=== PATIENT | female | born 1980 | race African-American/Black ===

== ENCOUNTER 2017-03-27 21:27 | Emergency (ER) | payer BC ==
[2017-03-27 22:01] LABS: Bacteria/HPF None Seen HPF (None Seen); Hyaline Casts/LPF 0-3 HYALINE CAST LPF (0-3 Hyaline); Squamous Epithelial None Seen HPF (0-3); WBC/HPF 0-3 HPF (0-3)
[2017-03-27 22:04] LABS: Bilirubin Negative (Negative); Blood, Urine Trace (Negative); Glucose, Urine (Dipstick) Negative (Negative); Ketone, Urine Negative (Negative); Nitrite Negative (Negative); Protein, Urine (Dipstick) Negative (Neg-Trace); Urobilinogen 0.2 mg/dL (0.2-1.0)
[2017-03-27] MEDS ORDERED: Ketorolac Tromethamine 30 MG/ML VIAL ONE (22:37)
== END 2017-03-27 23:16 | disposition home or self-care (01) ==
LOC: ERS 21:27
DX: S39.012A Strain of muscle, fascia and tendon of lower back, initial encounter (principal); X50.9XXA Other and unspecified overexertion or strenuous movements or postures, initial encounter; Y92.149 Unspecified place in prison as the place of occurrence of the external cause
CPT/HCPCS: 81003; 81015; 81025; 96372; J1885

== ENCOUNTER 2019-06-19 15:59 | Emergency (ER) | payer BC, SELFPAY | END 2019-06-19 16:58 | disposition home or self-care (01) | LOC: ERS 15:59 | DX: S16.1XXA Strain of muscle, fascia and tendon at neck level, initial encounter (principal); X58.XXXA Exposure to other specified factors, initial encounter | CPT/HCPCS: 99283 ==